=== PATIENT | male | born 1950 | race Caucasian/White ===

== ENCOUNTER → 2024-09-17 | Outpatient (CLI) | payer MEDICARE ==
[~2024-09-17] MED LIST: NS (Normal Saline) 0.9% 1,000 ML IV SCH; SODIUM CHLORIDE 0.9% 1000 ML XX SCH
[2024-09-17 12:25] VITALS: TEMP 96.9
[2024-09-17 13:02] LABS: HEMATOCRIT 40.3 % (42.0-52.0); MEAN CORPUSCULAR HEMOGLOBIN 29.3 pg (27.0-33.0); MEAN CORPUSCULAR HGB CONC 32.3 g/dl (32.0-36.5); MEAN CORPUSCULAR VOLUME 90.8 fl (80.0-96.0); PLATELET COUNT, AUTOMATED 178 10^3/uL (150-450); RED BLOOD COUNT 4.44 10^6/uL (4.30-6.10); WHITE BLOOD COUNT 8.4 10^3/uL (4.0-10.0)
[2024-09-17 13:13] LABS: INR 1.02; PARTIAL THROMBOPLASTIN TIME 28.9 SECONDS (24.8-34.2); PROTHROMBIN TIME 13.7 SECONDS (12.5-14.5)
[2024-09-17 13:22] LABS: BLOOD UREA NITROGEN 11 MG/DL (9-23); CALCIUM LEVEL 9.7 MG/DL (8.3-10.6); CARBON DIOXIDE LEVEL 28 MMOL/L (20-31); CHLORIDE LEVEL 103 MMOL/L (98-107); CREATININE FOR GFR 0.82 MG/DL (0.70-1.30); GLOMERULAR FILTRATION RATE > 90.0 (>42); GLUCOSE, FASTING 149 MG/DL (74-106); POTASSIUM SERUM 3.8 MMOL/L (3.5-5.1); SODIUM LEVEL 141 MMOL/L (136-145)
[2024-09-17] MEDS: fentaNYL 100 MCG/2 ML INJECTION IV PRN (13:28)
[2024-09-17] MEDS: MIDAZOLAM INJ 2MG/2ML VIAL IV PRN (13:29)
[2024-09-17] MEDS: NS (Normal Saline) 0.9% 1,000 ML IV SCH (13:31)
[2024-09-17] MEDS: ISOVUE-300 61% 100ML VIAL IV SCH (13:44)
[2024-09-17] MEDS: LIDOCAINE 1% MDV 20ML VIAL SC SCH (13:45)
[2024-09-17 14:25] VITALS: BP 144/70; O2SAT 92
== END ==
LOC: M IRPRO 11:41
PROVIDERS: ATTEND Registered Nurse
DX: Z95.828 Presence of other vascular implants and grafts (principal); Z86.718 Personal history of other venous thrombosis and embolism; Z79.01 Long term (current) use of anticoagulants
CPT/HCPCS: 37193; 80048; 85027; 85610; 85730; 99152; C1769; C1894; J2250; J3010; Q9967